=== PATIENT | male | born 1970 | race Caucasian/White ===

== ENCOUNTER → 2020-02-29 | Outpatient (CLI) | payer OTHER ==
[~2020-02-29] MED LIST: CIPR500 PO; HYDACE5 PO
[2020-02-29 19:12] LABS: BASOPHILS ABSOLUTE AUTO 0.04 K/mm3 (0.00-0.23); BASOPHILS PERCENT AUTO 0 % (0-2); EOSINOPHILS PERCENT AUTO 2 % (0-6); Hematocrit 43.2 % (37.0-53.0); Hemoglobin 14.9 g/dL (13.5-17.5); IMMATURE GRAN ABSOLUTE AUTO 0.03 K/mm3 (0.00-0.10); IMMATURE GRAN PERCENT AUTO 0 % (0-1); LYMPHOCYTES ABSOLUTE AUTO 2.19 K/mm3 (0.84-5.20); LYMPHOCYTES PERCENT AUTO 18 % (21-46); MONOCYTES ABSOLUTE AUTO 1.08 K/mm3 (0.16-1.47); MONOCYTES PERCENT AUTO 9 % (4-13); Mean Corpuscular HGB 31.4 pg (26.0-34.0); Mean Corpuscular HGB Conc 34.5 g/dL (31.5-36.5); Mean Corpuscular Volume 91 fL (80-100); Mean Platelet Volume 9.8 fL (9.1-12.4); NEUTROPHILS ABSOLUTE AUTO 8.43 K/mm3 (1.96-9.15); NEUTROPHILS PERCENT AUTO 70 % (41-73); Platelet Count 232 K/mm3 (150-400); RDW Coefficient Variation 13.1 % (11.7-14.2); RDW Standard Deviation 43.9 fL (35.1-46.3); Red Blood Cell Count 4.74 M/mm3 (4.30-5.90); White Blood Cell Count 11.97 K/mm3 (4.00-11.30)
[2020-02-29 19:21] LABS: Alanine Aminotransfer (ALT/SGP 32 U/L (12-78); Albumin, Blood 3.9 g/dL (3.4-5.0); Alk Phos 71 U/L (40-126); Anion Gap 13 mmol/L (6-16); Aspartate Aminotrans (AST/SGOT 22 U/L (12-37); Blood Urea Nitrogen 17 mg/dL (8-24); Bun/Creatinine Ratio 15.3 (12.0-20.0); CO2, Blood 25 mmol/L (21-32); Calcium, Blood 8.9 mg/dL (8.5-10.1); Chloride, Blood 102 mmol/L (98-108); Creatinine, Blood 1.11 mg/dL (0.60-1.20); Globulin, Blood 3.9 g/dL (2.2-4.0); Glomerular Filtration Rate >60 (60-); Glucose, Blood 102 mg/dL (70-99); Potassium, Blood 3.9 mmol/L (3.5-5.5); Sodium, Blood 140 mmol/L (136-145); Total Protein, Blood 7.8 g/dL (6.4-8.2)
== END | disposition home or self-care (01) ==
LOC: LAB SHORT 19:07 → LAB EV 19:07
PROVIDERS: Physician Assistant
DX: R10.32 Left lower quadrant pain (principal)
CPT/HCPCS: 80053; 85025

== ENCOUNTER 2022-03-31 08:00 | Day surgery (SDC) | payer OTHER ==
[~2022-03-31] VITALS: Ht 185.4 cm; Wt 91.9 kg
[~2022-03-31 08:00] MED LIST changes: +ESOM20 PO
--- NOTE | 2022-03-31 08:41 | NUR ---
History, Chart, Medications and Allergies reviewed before start of Procedure. Lungs clear T/O to Auscultation. Patient confirms NPO status and agrees with scheduled surgery. Pre-Op teaching done. Pt verbalizes understanding. Patient States Post-Procedure ride home has been arranged. Patient states colon prep results clear.
--- NOTE | 2022-03-31 09:28 | NUR ---
03/31/22 0928 Lina Tyler History, Chart, Medications and Allergies reviewed before start of procedure. Patient confirms NPO status and agrees with scheduled surgery. 3-LEAD EKG REVIEWED WITH PHYSICIAN PRIOR TO START OF PROCEDURE. MONITOR INTACT WITH CONTINUOUS PULSE OXIMETRY AND INTERMITTENT BP. PATIENT DETERMINED TO BE ASA APPROPRIATE FOR PROPOFOL SEDATION PRIOR TO START OF PROCEDURE BY DR. KHALIL. MONITOR IN GOOD WORKING ORDER. MALLAMPATI CLASS 1 AIRWAY: COMPLETE VISULATIZATION OF THE SOFT PALATE.
--- NOTE | 2022-03-31 11:13 | NUR ---
Patient up to Ambulate independently. Gait steady. Milli Paws warming gown applied. Discharge instructions reviewed with patient. Patient verbalizes understanding. Copy given to patient to take home.Lungs clear T/O to Auscultation. Patient States Post-Procedure ride home has been arranged. Discharged via wheelchair to private car for ride home.
== END 2022-03-31 11:15 | disposition home or self-care (01) ==
LOC: ORSCMMR 08:00 → ORD 09:15 → ORSCMMR 11:15
PROVIDERS: Surgery
PROC: 0DJD8ZZ Inspection of Lower Intestinal Tract, Via Natural or Artificial Opening Endoscopic (ICD-10-PCS; principal; 2022-03-31 09:15)
DX: K62.5 Hemorrhage of anus and rectum (principal); K57.30 Diverticulosis of large intestine without perforation or abscess without bleeding; K64.4 Residual hemorrhoidal skin tags; R10.9 Unspecified abdominal pain; J45.909 Unspecified asthma, uncomplicated; I10 Essential (primary) hypertension; Z79.899 Other long term (current) drug therapy
CPT/HCPCS: J2704; J7120

== ENCOUNTER 2022-08-13 06:05 | Day surgery (SDC) | payer OTHER ==
[~2022-08-13] VITALS: Ht 185.4 cm; Wt 93.7 kg
[~2022-08-13 06:05] MED LIST changes: +Apple Cider Vi300 MG; +ESOM20; +Flonase 0.05% N16 GM; +VITAMIN D310 MC4; +Vitamin B Comple1 EA; +[UNRECOGNIZED DRUG - OTHER]
--- NOTE | 2022-08-13 07:02 | NUR ---
Ambulatory in Day Surgery History, Chart, Medications and Allergies reviewed before start of procedure. Lungs clear T/O to Auscultation. Pre-Op teaching done. Pt verbalizes understanding. Patient States Post-Procedure ride home has been arranged.
--- NOTE | 2022-08-13 10:08 | NUR ---
1000- PT AMBULATED TO BATHROOM, VOIDED, DRESSED W/HELP OF SIG OTHER. Discharge instructions reviewed with patient. Patient verbalizes understanding. Copy given to patient to take home. DRG C/D/I TO [facility]. Discharged via wheelchair to private car for ride home.
== END 2022-08-13 10:05 | disposition home or self-care (01) ==
LOC: ORSCMMR 06:05
PROVIDERS: Surgery
PROC: 0YUA0JZ Supplement Bilateral Inguinal Region with Synthetic Substitute, Open Approach (ICD-10-PCS; principal; 2022-08-13 07:30)
DX: K40.20 Bilateral inguinal hernia, without obstruction or gangrene, not specified as recurrent (principal); D17.6 Benign lipomatous neoplasm of spermatic cord; J45.909 Unspecified asthma, uncomplicated; I10 Essential (primary) hypertension; R25.1 Tremor, unspecified; R00.1 Bradycardia, unspecified; Z79.899 Other long term (current) drug therapy
CPT/HCPCS: A9270; C1781; J0690; J1100; J1885; J2250; J2405; J2704; J2795; J3010; J7120

== ENCOUNTER 2023-03-01 06:17 | Day surgery (SDC) | payer OTHER ==
[~2023-03-01] VITALS: Ht 185.4 cm; Wt 88.3 kg
--- NOTE | 2023-03-01 09:22 | NUR ---
03/01/23 0922 RAN SALAZAR PT STATES STILL NAUSEATED BUT BETTER AND PAIN- 6-7/10. GIRLFRIEND TOOK RX TO PHARMACY FOR PT. PT SITTING UP EATING AND DRINKING W/O DIFFICULTY.
[2023-03-01 09:34] VITALS: BP 123/80
== END 2023-03-01 09:45 | disposition home or self-care (01) ==
LOC: ORSCSDS 06:17
PROVIDERS: Orthopaedic Surgery
PROC: 01S40ZZ Reposition Ulnar Nerve, Open Approach (ICD-10-PCS; principal; 2023-03-01 07:30)
DX: G56.23 Lesion of ulnar nerve, bilateral upper limbs (principal)
CPT/HCPCS: A9270; J0171; J0690; J1100; J2250; J2405; J2704; J2795; J3010; J7120

== ENCOUNTER → 2023-03-14 | Outpatient (CLI) | payer OTHER ==
[2023-03-14 14:32] LABS: BASOPHILS ABSOLUTE AUTO 0.03 K/mm3 (0.00-0.23); BASOPHILS PERCENT AUTO 0 % (0-2); EOSINOPHILS ABSOLUTE AUTO 0.08 K/mm3 (0.00-0.68); EOSINOPHILS PERCENT AUTO 1 % (0-6); Hematocrit 40.8 % (37.0-53.0); Hemoglobin 13.9 g/dL (13.5-17.5); IMMATURE GRAN ABSOLUTE AUTO 0.04 K/mm3 (0.00-0.10); IMMATURE GRAN PERCENT AUTO 0 % (0-1); LYMPHOCYTES ABSOLUTE AUTO 2.12 K/mm3 (0.84-5.20); LYMPHOCYTES PERCENT AUTO 16 % (21-46); MONOCYTES ABSOLUTE AUTO 0.95 K/mm3 (0.16-1.47); MONOCYTES PERCENT AUTO 7 % (4-13); Mean Corpuscular HGB 29.9 pg (26.0-34.0); Mean Corpuscular HGB Conc 34.1 g/dL (31.5-36.5); Mean Corpuscular Volume 88 fL (80-100); Mean Platelet Volume 9.5 fL (9.1-12.4); NEUTROPHILS ABSOLUTE AUTO 9.68 K/mm3 (1.96-9.15); NEUTROPHILS PERCENT AUTO 75 % (41-73); Platelet Count 265 K/mm3 (150-400); RDW Coefficient Variation 13.3 % (11.7-14.2); RDW Standard Deviation 42.6 fL (35.1-46.3); Red Blood Cell Count 4.65 M/mm3 (4.30-5.90)
[2023-03-14 14:42] LABS: Albumin, Blood 3.3 g/dL (3.4-5.0); Albumin/Globulin Ratio 0.8 (0.8-1.8); Bun/Creatinine Ratio 13.2 (12.0-20.0); Calcium, Blood 9.1 mg/dL (8.5-10.1); Creatinine, Blood 1.14 mg/dL (0.60-1.20); Potassium, Blood 3.8 mmol/L (3.5-5.5); Total Protein, Blood 7.3 g/dL (6.4-8.2)
== END | disposition home or self-care (01) ==
LOC: LAB 14:27 → LAB SHORT 14:27
PROVIDERS: Physician Assistant
DX: R10.9 Unspecified abdominal pain (principal)
CPT/HCPCS: 80053; 85025

== ENCOUNTER 2023-08-16 09:55 | Day surgery (SDC) | payer OTHER ==
[~2023-08-16] VITALS: Ht 185.4 cm; Wt 93.8 kg
[2023-08-16 13:13] VITALS: BP 124/79
--- NOTE | 2023-08-16 14:00 | NUR ---
08/16/23 1400 GRAEME GLEZ DOCTOR CONNER SPOKE WITH PT AND PT IN PRE OP REGARDING CHANGING THE DRESSING. TAMER/ REPEATED BACK WHAT DR TOLD THEM. PT WILL LEAVE ON FOR 48HRS THEN MAY REMOVE TO SHOWER AND CLEAN, DRY AND THEN REDRESS WITH GAUZE AND TAPE. RN GAVE TWO TEGREDERM BANDAGES FOR KEEPING INCISION CLEAN AND DRY IN BETWEEN DRESSING CHANGES. TOLD PT TO CALL AND CONFIRM F/U APT AND ASK ABOUT DRESSING CHANGES IF THEY HAVE ANY QUESTIONS.
[2023-09-08] MEDS ORDERED: ALEVE220 MG (12:37)
[2023-09-08] MEDS ORDERED: ESOM20 (12:37)
[2023-09-08] MEDS ORDERED: FLONASE ALLERG9.9 M2 (12:37)
== END 2023-08-16 13:50 | disposition home or self-care (01) ==
LOC: ORSCSDS 09:55
PROVIDERS: Orthopaedic Surgery
PROC: 01N40ZZ Release Ulnar Nerve, Open Approach (ICD-10-PCS; principal; 2023-08-16 11:15)
DX: G56.21 Lesion of ulnar nerve, right upper limb (principal)
CPT/HCPCS: A9270; J0690; J1100; J2405; J2704; J3010; J7120

== ENCOUNTER 2023-09-14 07:49 | Day surgery (SDC) | payer OTHER ==
[~2023-09-14] VITALS: Ht 185.4 cm; Wt 97.3 kg
[~2023-09-14 07:49] MED LIST changes: +ALEVE220 MG; +FLONASE ALLERG9.9 M2
[2023-09-14 09:30] VITALS: BP 120/80
--- NOTE | 2023-09-14 09:32 | NUR ---
09/14/23 0932 Melissa Muro 0905: PATIENT STATED SLIGHT NAUSEA THAT IMPROVED AFTER PO FLUIDS. 0910: IMPROVED NAUSEA, TOLERATED PO FLUIDS, IV REMOVED, SITE WNL, CATH INTACT. PATIENT STATED READINESS TO GO HOME.
== END 2023-09-14 09:18 | disposition home or self-care (01) ==
LOC: ORSCSDS 07:49
PROVIDERS: Surgery
PROC: 0DB68ZX Excision of Stomach, Via Natural or Artificial Opening Endoscopic, Diagnostic (ICD-10-PCS; principal; 2023-09-14 08:45)
DX: K21.9 Gastro-esophageal reflux disease without esophagitis (principal); K44.9 Diaphragmatic hernia without obstruction or gangrene; J45.909 Unspecified asthma, uncomplicated; I10 Essential (primary) hypertension; Z79.899 Other long term (current) drug therapy
CPT/HCPCS: 88305; 88342; J2704; J7120

== ENCOUNTER 2025-03-06 10:27 | Day surgery (SDC) | payer OTHER ==
[2025-03-06] VITALS (20 sets, daily range): BP systolic 110–198; BP diastolic 68–105
[~2025-03-06] VITALS: Ht 182.9 cm; Wt 91.0 kg
[~2025-03-06 10:27] MED LIST changes: +APPLE CIDER VI250 MG; +Acetaminophen 500 MG Tab PO SCH; +Lactated Ringer's 1,000 ML IV SCH; +NAPR220 PO
[2025-03-06] MEDS ORDERED: propofoL 20 ML IV ONE (11:02)
[2025-03-06] MEDS ORDERED: Dexamethasone Sod Phos 10 MG/ML 1ML VIAL ONE ×2 (11:03→12:52)
[2025-03-06] MEDS ORDERED: Ondansetron HCl 2 MG / ML 2ML Vial ONE ×2 (11:03→12:52)
[2025-03-06] MEDS ORDERED: Rocuronium Bromide 10 MG/ML 5ML Injection IV ONE ×2 (11:03→13:46)
[2025-03-06] MEDS ORDERED: FentaNYL Citrate 50 MCG/ML 5 ML Injection ONE (11:03)
--- NOTE | 2025-03-06 11:36 | NUR ---
History, Chart, Medications and Allergies reviewed before start of procedure. Pre-Op teaching done. Pt verbalizes understanding. Patient confirms NPO status and agrees with scheduled surgery. AGREES WITH PLANNED SURGERY. 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
[2025-03-06] MEDS ORDERED: Bupivacaine 0.5% HCl 5 MG/ML 30MLVIAL ONE (12:06)
[2025-03-06] MEDS ORDERED: Bupivacaine 0.5% W/EPI 1:200000 SDV 30 ML Vial ONE (12:12)
[2025-03-06] MEDS ORDERED: propofoL 50 ML IV ONE (12:17)
[2025-03-06] MEDS ORDERED: propofoL 100 ML IV ONE (12:17)
[2025-03-06] MEDS ORDERED: Lidocaine HCl 4% 5 ML SDA ONE (12:17)
[2025-03-06] MEDS ORDERED: Midazolam HCl 1MG / ML 2ML Vial ONE (12:28)
[2025-03-06] MEDS ORDERED: Midazolam HCl 1MG / ML 2ML Vial IV ONE (12:30)
[2025-03-06] MEDS ORDERED: Ketorolac Tromethamine 30mg Vial ONE (12:52)
[2025-03-06] MEDS ORDERED: Sugammadex Sodium 200 MG/2ML SDV (100 MG/ML) ONE ×2 (13:08→14:33)
--- NOTE | 2025-03-06 15:37 | NUR ---
ARRIVAL TO UNIT AFTER RECEIVING REPORT FROM HOTEL HOUSEKEEPER, PATIENT TRANSFERRED TO UNIT AT APPROX 1530. PATIENT LETHARGIC - EASILY AROUSABLE WITH VERBAL STIMULI. SBP 160s. DENIES CHEST PAIN, PRESSURE. ON 2L VIA NC, SATs >90%. S/P FUNDOPLICATION - X4 LAP SITES WITH WOUND GLUE C/D/I. REPORTS MINIMAL PAIN. DENIES N/V - CLEAR LIQUIDS WITHIN REACH. IVF INFUSING TO GRAVITY. CALL LIGHT IN REACH.
[2025-03-06] MEDS ORDERED: OxyCODONE HCL 5 MG TAB PO PRN (15:45)
[2025-03-06] MEDS ORDERED: Ondansetron HCl 2 MG / ML 2ML Vial IV PRN (15:45)
--- NOTE | 2025-03-06 16:14 | NUR ---
HTN PATIENT REPORTING CHEST "HEAVINESS." SBP 180s-190s, DBP 100s. PULSE 50s-60s. DENIES HX OF HTN. ABD SOFT, TENDER. X4 LAP SITES C/D/I. MD WREN NOTIFIED - ORDER RECEIVED FOR X1 DOSE OF 10MG IV HYDRALAZINE NOW. WILL ADMINISTER PER EMAR
[2025-03-06] MEDS ORDERED: HydrALAZINE HCl 20 MG / ML 1ML Vial IV ONE (16:15)
--- NOTE | 2025-03-06 17:38 | NUR ---
SHIFT SUMMARY SEE PREVIOUS NOTES. BP IMPROVED FOLLOWING IV HYDRALAZINE ADMINISTRATION - SBP 160s, DBP 90s. REPORTS IMPROVEMENT IN CHEST "HEAVINESS" AND SHOULDER PAIN. MD WREN AWARE OF CURRENT BP RANGE - NO NEW ORDERS RECEIVED. TITRATED TO ROOM AIR, SATs >90%. S/P FUNDOPLICATION. TOLERATING CLEAR LIQUID DIET. X4 LAP SITES C/D/I. MANAGING PAIN PER EMAR WITH PO OXYCODONE - REPORTING RELIEF. AMBULATING IN HALLWAY TO HELP WITH POSSIBLE GAS PAIN. BURPING, DENIES FLATULENCE. CALL LIGHT IN REACH. FAMILY AT BEDSIDE.
--- NOTE | 2025-03-06 20:01 | NUR ---
DISCHARGE NOTE- PT INSTRUCTED ON DIET PRECAUTIONS. PT TOLERATING FULL LIQUID DIET. PT INSTRUCTED ON WOUND CARE OF LAP SITES. PT PROVIDED WITH DISCHARGE PACKET. PT IV REMOVED.
== END 2025-03-06 20:00 | disposition home or self-care (01) ==
LOC: ORSCMMR 10:27 → ORD 12:00 → ORSCMMR 12:00 → SURS 15:22 → ORSCMMR 15:22 → SURS 15:28 → ORSCMMR 20:00 → SURS 20:00
PROVIDERS: Surgery
PROC: 0BQT4ZZ Repair Diaphragm, Percutaneous Endoscopic Approach (ICD-10-PCS; 2025-03-06)
PROC: 8E0W4CZ Robotic Assisted Procedure of Trunk Region, Percutaneous Endoscopic Approach (ICD-10-PCS; principal; 2025-03-06 12:00)
PROC: 0DV44ZZ Restriction of Esophagogastric Junction, Percutaneous Endoscopic Approach (ICD-10-PCS; principal; 2025-03-06 12:00)
DX: K44.9 Diaphragmatic hernia without obstruction or gangrene (principal); K21.9 Gastro-esophageal reflux disease without esophagitis; I10 Essential (primary) hypertension
CPT/HCPCS: 93005; 93010; A9270; J0360; J1100; J1885; J2003; J2250; J2405; J2704; J3010; J7120

== ENCOUNTER 2025-08-29 07:58 | Day surgery (SDC) | payer OTHER ==
[~2025-08-29] VITALS: Ht 182.9 cm; Wt 93.6 kg
[~2025-08-29 07:58] MED LIST changes: -Acetaminophen 500 MG Tab PO SCH; -Lactated Ringer's 1,000 ML IV SCH
[2025-08-29] MEDS ORDERED: ALBU90OI (08:10)
[2025-08-29 10:20] VITALS: BP 115/80
== END 2025-08-29 10:05 | disposition home or self-care (01) ==
LOC: ORSCSDS 07:58
PROVIDERS: Internal Medicine Gastroenterology
PROC: 0DJD8ZZ Inspection of Lower Intestinal Tract, Via Natural or Artificial Opening Endoscopic (ICD-10-PCS; principal; 2025-08-29 09:15)
DX: K57.30 Diverticulosis of large intestine without perforation or abscess without bleeding (principal); I10 Essential (primary) hypertension; J45.909 Unspecified asthma, uncomplicated; Z86.0100 Personal history of colon polyps, unspecified
CPT/HCPCS: J2704; J7120